=== PATIENT | male | born 1965 | race African-American/Black ===

== ENCOUNTER 2018-02-16 09:02 | Emergency (ER) | payer OTHER ==
[2018-02-16 09:34] LABS: ADD MAN DIFF? NO
[2018-02-16 09:37] LABS: BASO % 0 % (0-3); EOS # 0.4 x10^3/uL (0.0-0.7); EOS % 7 % (0-3); HEMATOCRIT 42.1 % (39.0-53.0); LYMPH % 33 % (24-48); MEAN CORPUSCULAR HEMOGLOBIN 28 pg (25-35); MEAN CORPUSCULAR HGB CONC 33 g/dL (31-37); MEAN CORPUSCULAR VOLUME 85 fL (79-100); MONO # 0.6 x10^3/uL (0.0-1.1); MONO % 11 % (0-9); NEUT % 49 % (31-73); PLATELET COUNT 257 x10^3/uL (140-400); RED BLOOD COUNT 4.95 x10^6/uL (4.30-5.70); RED CELL DISTRIBUTION WIDTH 15.6 % (11.5-14.5)
[2018-02-16] MEDS: ASPIRIN CHEWABLE 81 MG TABLET. PO (09:38)
[2018-02-16] MEDS: NITROGLYCERIN OINT 1 GM PACKET. TP (09:41)
[2018-02-16 09:53] LABS: D-DIMER 0.27 ug/mlFEU (0.00-0.50)
[2018-02-16 10:05] LABS: ALBUMIN 3.7 g/dL (3.4-5.0); ALBUMIN/GLOBULIN RATIO 1.3 (1.0-1.7); ALK PHOS 83 U/L (46-116); ALT (SGPT) 32 U/L (16-63); ANION GAP 12 (6-14); AST (SGOT) 14 U/L (15-37); BLOOD UREA NITROGEN 15 mg/dL (8-26); BUN/CREATININE RATIO 11 (6-20); CALCIUM 8.5 mg/dL (8.5-10.1); CARBON DIOXIDE 25 mmol/L (21-32); CHLORIDE 103 mmol/L (98-107); CREATININE 1.4 mg/dL (0.7-1.3); GFR 63.9; GLUCOSE 116 mg/dL (70-99); LIPASE 155 U/L (73-393); POTASSIUM 3.9 mmol/L (3.5-5.1); SODIUM 140 mmol/L (136-145); TOTAL BILIRUBIN 0.3 mg/dL (0.2-1.0); TOTAL PROTEIN 6.6 g/dL (6.4-8.2)
[2018-02-16 10:09] LABS: TROPONINI < 0.017 ng/mL (0.000-0.055)
[2018-02-16 10:11] LABS: CKMB INDEX 0.8 % (0-4); CREATINE KINASE 129 U/L (39-308)
[2018-02-16 10:11] LABS: NT-PRO BNP 124 pg/mL (0-124)
== END 2018-02-16 10:26 | disposition left against medical advice (07) ==
LOC: ER 09:02
DX: R07.89 Other chest pain (principal); I10 Essential (primary) hypertension; Z79.82 Long term (current) use of aspirin; F17.210 Nicotine dependence, cigarettes, uncomplicated; Z88.8 Allergy status to other drugs, medicaments and biological substances; Z91.013 Allergy to seafood
CPT/HCPCS: 36415; 71045; 80053; 82553; 83690; 83880; 84484; 85025; 85379; 93005; 99285-25

== ENCOUNTER → 2018-12-31 | Outpatient (CLI) | payer OTHER ==
[2018-02-16 10:21] VITALS: BP 133/78
--- NOTE | 2018-12-31 09:49 | CARD ---
MR#: [id number] Date of Study: 12/31/2018 Ordering Physician: DIMITRIOS BOWDEN, Referring Physician: DIMITRIOS BOWDEN, Tech: Rose Gar AUBREY APPROVED REPORT EXAM: Two-dimensional and M-mode echocardiogram with Doppler and color Doppler. Other Information Quality : GoodHR: 80bpm Rhythm : NSR INDICATION Cardiomyopathy 2D DIMENSIONS RVDd3.7 (2.9-3.5cm)Left Atrium(2D)3.2 (1.6-4.0cm) IVSd1.3 (0.7-1.1cm)Aortic Root(2D)3.9 (2.0-3.7cm) LVDd5.1 (3.9-5.9cm)LVOT Diameter2.6 (1.8-2.4cm) PWd1.4 (0.7-1.1cm)LVDs3.8 (2.5-4.0cm) FS (%) 25.8 %SV63.2 ml LVEF(%)50.4 (>50%) Aortic Valve AoV Peak Dhaval.135.3cm/sAoV VTI29.6cm AO Peak GR.7.3mmHgLVOT Peak Dhaval.77.3cm/s AO Mean GR.4mmHgAVA (VMAX)3.09cm2 ASHANTI (VTI)3.00cm2 Mitral Valve MV E Okqrygxl03.9cm/sMV DECEL HFZI461kn MV A Fpzwgfbp15.1cm/sE/A Ratio1.0 MV A Lbvrfpeu33ba Pulmonary Valve PV Peak Wsejldub01.5cm/s Tricuspid Valve TR P. Arbxqoyq527ie/sRAP HDAWPNOX9ytEe TR Peak Gr.91oxBjVGRI34mbVr LEFT VENTRICLE The left ventricle is normal size. There is mild concentric left ventricular hypertrophy. Left ventri rosangela systolic function is low normal. The Ejection Fraction is 50%. RIGHT VENTRICLE The right ventricle is normal size. There is normal right ventricular wall thickness. The right ventr icular systolic function is normal. ATRIA The left atrium size is normal. The right atrium size is normal. The interatrial septum is intact wit h no evidence for an atrial septal defect or patent foramen ovale as noted on 2-D or Doppler imaging. AORTIC VALVE The aortic valve is thickened but opens well. The aortic valve is trileaflet. Doppler and Color Flow revealed trace aortic regurgitation. There is no significant aortic valvular stenosis. MITRAL VALVE The mitral valve is normal in structure and function. There is no evidence of mitral valve prolapse. There is no mitral valve stenosis. Doppler and Color-flow revealed trace mitral regurgitation. TRICUSPID VALVE The tricuspid valve is normal in structure and function. Doppler and Color Flow revealed trace tricus pid regurgitation. The PA pressure was estimated at 27 mmHg. There is no tricuspid valve prolapse or vegetation. There is no tricuspid valve stenosis. PULMONIC VALVE The pulmonary valve is normal in structure and function. Doppler and Color Flow revealed trace pulmon ic valvular regurgitation. There is no pulmonic valvular stenosis. GREAT VESSELS The aortic root is mildly enlarged at 3.8cm. The ascending aorta is Mildly dilated at 4.3cm. The IVC is normal in size and collapses >50% with inspiration. PERICARDIAL EFFUSION There is no evidence of significant pericardial effusion. Critical Notification Critical Value: No <Conclusion> Left ventricle systolic function is low normal. The Ejection Fraction is 50%. Trace mitral regurgitation. Trace tricuspid regurgitation. The PA pressure was estimated at 27 mmHg. There is no evidence of significant pericardial effusion. Signed by : Henry Gardner, Electronically Approved : 12/31/2018 09:48:41
== END | disposition home or self-care (01) ==
LOC: ECHO 07:44
PROVIDERS: ATTEND Internal Medicine
DX: I11.9 Hypertensive heart disease without heart failure (principal); I43 Cardiomyopathy in diseases classified elsewhere
CPT/HCPCS: 93306

== ENCOUNTER → 2019-05-31 | Outpatient (CLI) | payer OTHER ==
[2018-02-16 10:21] VITALS: BP 133/78
--- NOTE | 2019-05-31 10:30 | KCIC ---
MRI of the lumbar spine without contrast 05/31/2019 CLINICAL HISTORY: Low back pain which radiates down the right leg for 6 months. TECHNIQUE: Unenhanced T1-weighted and T2-weighted sagittal and axial and inversion recovery sagittal images of the lumbar spine were obtained. FINDINGS: Comparison is made to radiographs of the lumbar spine dated 11/25/2013. Minimal S-shaped curvature of the thoracolumbar spine is seen. Degenerative signal changes are seen involving the L3-4, L4-5 and L5-S1 discs. Hemangiomas which measure 1 cm in size are seen involving the L1 and L4 vertebral bodies. The conus medullaris is normal morphology, position, and signal characteristics. A 1.4 cm rounded high signal intensity lesion is seen involving the lower pole of the left kidney on the T2-weighted images. This likely represents a cyst. At the L1-2 and L2-3 disc spaces there are mild generalized disc bulges. Degenerative changes are seen involving the facet joints bilaterally. There is mild ligamentum flavum hypertrophy. These findings when combined do not result in significant central spinal canal or neural foraminal stenosis. At the L3-4 disc disc space there is a mild generalized disc bulge. Superimposed on this disc bulge is a right lateral focal disc herniation. This measures 5 mm in AP diameter. Degenerative changes are seen involving the facet joints bilaterally. There is mild ligamentum flavum hypertrophy bilaterally. There is prominence of the posterior epidural fat. These findings when combined result in mild central spinal canal stenosis. The disc herniation contributes to moderate right neural foraminal stenosis and may impinge to some degree upon the exiting right L3 nerve root. Clinical correlation with this finding is recommended. The left neural foramen is patent. At the L4-5 disc space there is a mild generalized disc bulge. Superimposed on this disc bulge is a right lateral focal disc protrusion which measures 4 mm in AP diameter. Degenerative changes are seen involving the facet joints bilaterally. There is mild to moderate ligamentum flavum hypertrophy bilaterally. There is prominence of the posterior vertebral fat. These findings when combined result in mild central spinal canal stenosis. Mild right neural foraminal stenosis is seen. The left neural foramen is patent. At the L5-S1 disc space there is a mild generalized disc bulge. Superimposed on this disc bulge is a right paracentral focal disc protrusion. This measures 2 mm in AP diameter. Degenerative changes are seen involving the facet joints bilaterally. There is mild ligament flavum hypertrophy bilaterally. These findings when combined do not result in significant central spinal canal or neural foraminal stenosis. IMPRESSION: The changes of degenerative disc disease are seen throughout the lumbar spine. These findings result in mild central spinal canal stenosis at L3-4 and L4-5. Mild right neural foraminal stenosis is seen at L4-5. At the L3-4 disc space a right lateral focal disc herniation is seen which contributes to moderate right neural foraminal stenosis and may impinge to some degree upon the exiting right L5 nerve root. Clinical correlation with this finding is recommended. Electronically signed by: Daryl Keith MD (05/31/2019 10:28 AM) [id number]
== END | disposition home or self-care (01) ==
LOC: KCIC MRI 08:43
PROVIDERS: ATTEND Internal Medicine
DX: M51.17 Intervertebral disc disorders with radiculopathy, lumbosacral region (principal); M47.27 Other spondylosis with radiculopathy, lumbosacral region; M48.061 Spinal stenosis, lumbar region without neurogenic claudication; M89.39 Hypertrophy of bone, multiple sites
CPT/HCPCS: 72148

== ENCOUNTER → 2019-08-06 | Outpatient (CLI) | payer OTHER ==
[2018-02-16 10:21] VITALS: BP 133/78
[~2019-08-06] MED LIST: AMLO10TA8 PO; ASPI81TA50 PO; ATOR20TA58 PO; IOHEXOL 180 MG/ML 10 ML VIAL. ONE; METO100T7 PO; OMEP20CA10 PO; SPIR25TA5 PO; methylPREDNISolone ACETATE 40 MG/ML VIAL. ONE; methylPREDNISolone ACETATE 80 MG/ML VIAL. ONE
--- NOTE | 2019-08-06 23:53 | PAIN ---
DATE OF SERVICE: 08/06/2019 INITIAL CONSULTATION FOR PAIN CLINIC CHIEF COMPLAINT: Low back and right lower extremity pain. HISTORY OF PRESENT ILLNESS: This is a 53-year-old male who presents with history of pain in the low back and right lower extremity for about 5 years, worse over the past year or so. He has tried chiropractic treatment as well as physical therapy, both of which helped temporarily, but recently has not been helping at all. The patient is doing some stretching and strengthening exercises on his own. The patient reports that generally worse with walking, standing, changing positions or prolonged sitting, better with lying down; does not generally awaken him up from sleep at night, does not cause any bowel or bladder incontinence and does affect his ability to walk however. He notices some moderate fatigability in the right leg with walking, but no actual motor weakness or loss of function. The patient reports the pain is constant across the low back radiating to the right posterior gluteus, lateral anterior thigh, anterior medial thigh and groin, medial thigh to the medial lower leg just below the knee on the right side only. The patient reports it is radiating into the leg, again worse with walking, standing, changing positions. The patient reports it is better with sitting or lying down. Reports his disability rating from 0-10, 10 being the worst, is a 7 with family home responsibilities, recreation, social activity, occupation, sexual behavior, self-care and life support activities. The patient did have an MRI scan of the lumbar spine showing multiple levels of degenerative disk changes with mild central spinal canal stenosis at L3-L4 and L4-L5 with mild right neural foraminal stenosis at L4-L5 at the L3-L4 disk space, the right lateral focal disk herniation is seen, which contributes to moderate right neural foraminal stenosis and may impinge to some degree upon the exiting right nerve roots. The patient reports he has tried aspirin as well as Tylenol, both of which do decrease the pain by about 10-20%, but only minimally. PAST MEDICAL HISTORY: Significant for hypertension, hypercholesterolemia, arthritis, cigarette smoking about 3/4 of pack of cigarettes for the past 20 years, he continues to smoke. PAST SURGICAL HISTORY: The patient reports previous surgery of left knee arthroscopy, a fracture of the nose and the skull in the past. CURRENT MEDICATIONS: Include omeprazole, metoprolol, atorvastatin, amlodipine, spironolactone and daily baby aspirin. ALLERGIES: THE PATIENT IS ALLERGIC TO SHELLFISH AND LISINOPRIL. FAMILY HISTORY: Significant for no major medical problems or conditions that he is aware of. SOCIAL HISTORY: The patient does not drink alcohol, denies any illegal, illicit or recreational drugs. Smokes about 3/4 of pack and has for the past 20 years. He is , lives with his spouse, has no children, living at home, does have grandchildren that are visiting frequently, lives locally in [place], [place]. REVIEW OF SYSTEMS: The patient's review of systems is positive for those items mentioned in history of present illness. All systems reviewed and otherwise negative. It is complete, full and well documented on the patient's chart. PHYSICAL EXAMINATION: VITAL SIGNS: The patient's blood pressure is 148/102, pulse 73, respirations 18, temperature 98.1 degrees Fahrenheit, height 6 feet, weight is 298 pounds. GENERAL: The patient is awake, alert, oriented, appropriate, very pleasant demeanor. HEENT: Head shows normocephalic, atraumatic. Extraocular movements are intact and symmetrical. Oral cavity: Mucous membranes are moist and pink. Dentition is intact. NECK: Shows anterior throat supple without palpable lymphadenopathy noted. Swallow reflex symmetrical. CHEST: Shows normal on inspection. Breath sounds clear to auscultation bilaterally. HEART: Shows S1, S2 clear. No murmurs auscultated. ABDOMEN: Soft, nontender, nondistended. No palpable organomegaly is noted. No rebound or guarding demonstrated. BACK: Shows spine grossly in the midline. Normal appearing thoracic kyphosis and lumbar lordotic curvature. Lumbar paraspinous muscle shows symmetrical on inspection, on palpation shows some moderate tenderness diffusely bilaterally going diffusely without radiation. EXTREMITIES: The patient's lower extremities show deep tendon reflexes at 2+ in the patellar, 1+ tendo-calcaneus tendons. Motor exam is strong with 5/5 dorsiflexion, extension, quadriceps and hamstring flexion and symmetrical. Peripheral pulses are 1+ posterior tibial. No peripheral edema is noted. Straight leg raise noted to be negative for reproduction of radicular symptoms bilaterally. Gaenslen's and Shakeel's maneuvers are negative bilaterally. The patient is able to stand, stand on his toes without difficulty or loss of balance, walks with normal appearing gait, not using any assistive devices to ambulate. SKIN: Shows warm and dry, good turgor. No edema. No sores, rashes or bruising throughout. IMPRESSION: 1. This is a 53-year-old male with approximate 5-year history of low back and right lower extremity pain in a radicular fashion. 2. Lumbar MRI scan as noted. 3. Arthritis. 4. Hypertension. 5. Cigarette smoking. PLAN: Options were discussed with the patient including conservative medical management, continued physical therapies, interventional techniques. He would like to pursue interventional techniques. We discussed a lumbar epidural steroid injection using description as well as anatomical models to describe the procedure. Risks were then discussed including, but not limited to bleeding, infection, possibility of epidural hematoma, subsequent neurological compromise, dural puncture, headaches, spinal cord and/or nerve damage, side effects of steroid medication and poor results regarding pain control. The patient understands and wished to proceed. The patient will return to clinic in approximately 2 weeks for followup. He was counseled as to return appointment, activity level and side effects to be aware of. DIAGNOSES: Lumbar radiculopathy with lumbar degenerative disk disease, lumbar spinal stenosis and lumbar herniated disk. PROCEDURE: Lumbar epidural steroid injection, translaminar approach at L3-L4 level using C-arm fluoroscopic guidance under sterile prep and drape using local anesthetic. MEDICATION INJECTED: A total of 120 mg Depo-Medrol plus 10 mL of preservative-free normal saline and 2 mL of contrast. CONDITION AT DISCHARGE: Stable. The patient tolerated the procedure well, had no complications. VERITO REAVES MD DR: BRYSON/alvaro JOB#: [id number] / [id number] DIMITRIOS Yu MD
== END ==
LOC: PNCL 10:32
PROVIDERS: ATTEND Anesthesiology
DX: M51.16 Intervertebral disc disorders with radiculopathy, lumbar region (principal); M48.061 Spinal stenosis, lumbar region without neurogenic claudication; I10 Essential (primary) hypertension; E78.00 Pure hypercholesterolemia, unspecified; F17.210 Nicotine dependence, cigarettes, uncomplicated; Z98.890 Other specified postprocedural states; Z88.8 Allergy status to other drugs, medicaments and biological substances; Z91.013 Allergy to seafood
CPT/HCPCS: 62323; J1030; J1040; Q9965

== ENCOUNTER → 2019-08-23 | Outpatient (CLI) | payer OTHER ==
[2018-02-16 10:21] VITALS: BP 133/78
[~2019-08-23] MED LIST changes: +OMEP-229 PO; -OMEP20CA10 PO
--- NOTE | 2019-08-23 22:03 | PAIN ---
DATE OF SERVICE: 08/23/2019 PROGRESS NOTE FOR PAIN CLINIC HISTORY OF PRESENT ILLNESS: The patient is a 53-year-old male who returns for followup status post lumbar epidural steroid injection x 1. The patient reports about 75% improvement overall and still helping with the pain after the last 2 weeks. The patient reports the pain is in the right side, still present in the right side, posterior back radiating into the lateral anterior thigh and medial thigh, into the groin occasionally, but mostly in the medial thigh itself. The patient reports it is a 5 on a scale of 10 at its worst, 3 on average, 2 at its least and is a 3 today. The patient reports it is aching and dull, worse with walking, standing, changing positions, better with sitting or lying down, does not awaken her from sleep at night. The patient reports no new motor or sensory deficits, no new bowel or bladder incontinence or other complaints. PHYSICAL EXAMINATION: VITAL SIGNS: The patient's blood pressure 140/95, pulse 81, respirations 16, temperature 98.0 degrees Fahrenheit, weight is 297 pounds. GENERAL: The patient is awake, alert, oriented, appropriate, very pleasant demeanor. HEENT: Shows normocephalic, atraumatic. Extraocular movements are intact and symmetrical. Oral cavity: Mucous membranes moist and pink. Dentition is intact. NECK: Shows anterior throat supple without palpable lymphadenopathy noted. Swallow reflex symmetrical. CHEST: Shows normal on inspection. Breath sounds are clear bilaterally. HEART: Shows S1, S2 clear. No murmurs auscultated. ABDOMEN: Soft, nontender, nondistended. No palpable organomegaly is noted. No rebound or guarding demonstrated. BACK: Shows spine grossly in the midline. Normal-appearing thoracic kyphosis and lumbar lordotic curvature. Lumbar paraspinous muscle shows symmetrical on inspection, on palpation shows some moderate tenderness diffusely bilaterally going diffusely without significant radiation. EXTREMITIES: The patient's lower extremities show deep tendon reflexes 2+ in the patellar, 1+ tendo-calcaneus tendons. Motor exam is strong with 5/5 dorsiflexion, extension, quadriceps and hamstring flexion and symmetrical. Peripheral pulses are 1+ posterior tibia. No peripheral edema is noted bilaterally. Options were discussed with the patient. The patient's old chart was reviewed as his current medication regimen updated. Current review of systems updated today as well. We will proceed with a second in the series of lumbar epidural steroid injection today with fluoroscopic guidance. Risks were again discussed including, but not limited to bleeding, infection, possibility of epidural hematoma, subsequent neurological compromise, dural puncture, headaches, spinal cord and/or nerve damage, side effects of steroid medication and poor results regarding pain control. The patient understands and wished. The patient will return to clinic in approximately 2 weeks for followup. She was counseled on return appointment, activity level and side effects to be aware of. DIAGNOSES: Lumbar radiculopathy with lumbar degenerative disk disease and lumbar spinal stenosis and lumbar herniated disk. PROCEDURE: Lumbar epidural steroid injection, translaminar approach L3-L4 level using C-arm fluoroscopic guidance under sterile prep and drape using local anesthetic. MEDICATION INJECTED: A total of 120 mg Depo-Medrol plus 10 mL of preservative-free normal saline and 2 mL of contrast. CONDITION AT DISCHARGE: Stable. The patient tolerated the procedure well, had no complications. VERITO REAVES MD DR: BRYSON/alvaro JOB#: [id number] / [id number]
== END | disposition home or self-care (01) ==
LOC: PNCL 14:12
PROVIDERS: ATTEND Anesthesiology
DX: M51.16 Intervertebral disc disorders with radiculopathy, lumbar region (principal)
CPT/HCPCS: 62323; J1030; J1040; Q9965